=== PATIENT | female | born 1985 | race Caucasian/White ===

== ENCOUNTER 2020-02-05 15:49 | Emergency (ER) | payer BC, SELFPAY ==
--- NOTE | ~2020-02-05 | CT_ITS ---
EXAMINATION: CT abdomen pelvis w con DATE: 02/05/2020 17:57 INDICATION: Crohn's disease flareup. Abdomen pain. TECHNIQUE: Computed tomography (CT) of the abdomen and pelvis was performed with 100 cc Omnipaque 350 intravenous contrast. The dose-length product was 1261.88 mGy-cm. Automated exposure control and ite rative reconstruction technique were employed. COMPARISON: CT dated 05/19/2019 FINDINGS: Lung bases unremarkable. Heart size normal. No significant pleural or pericardial effusion. Fatty infiltration of the liver. The spleen, pancreas, adrenal glands and right kidney are unremarkab le. There is a punctate 2 mm nonobstructing left renal stone. Gallbladder is present. No bowel obstruction. Postsurgical changes consistent with partial right irving ctomy. There is an ileocolic anastomosis. No free air or free fluid. No evidence for abscess. There i s an involuting corpus luteal cyst of the right ovary which is slightly higher than expected. There a re accessory splenules. No acute osseous abnormality. IMPRESSION: 1. No acute abdominal abnormality. 2: Hepatic steatosis. 3: Nonobstructing left nephrolithiasis. Reviewed, dictated and finalized at location A.
[2020-02-05 16:02] VITALS: BP 141/98; PULSE 90; RESP 16; TEMP 37.1; O2SAT 98
[2020-02-05 16:29] LABS: Basophils Percent Auto 0.4 % (0.2-1.2); Eosinophils Absolute Auto 0.2 K/mm3 (0-0.3); Eosinophils Percent Auto 2.3 % (0-4.4); Hematocrit 42.9 % (37.0-47.0); Hemoglobin 14.6 g/dL (12.0-15.0); Immature Granulocyte Absolute 0.14 K/mm3 (0.00-0.031); Immature Granulocyte Percent A 1.6 % (0-0.5); Lymphocytes Absolute Auto 3.05 K/mm3 (0.9-3.2); Lymphocytes Percent Auto 33.8 % (18.3-44.2); Mean Corpuscular Hemoglobin 33.3 pg (26-34); Mean Corpuscular Volume 97.7 fl (80-100); Mean Platelet Volume 9.7 fl (7.4-10.4); Monocytes Absolute Auto 0.6 K/mm3 (0.1-0.6); Monocytes Percent Auto 6.6 % (2.6-8.5); Neutrophils Percent Auto 55.3 % (45.5-73.1); Platelet Count Result 235 k/mm3 (150-375); Red Blood Count 4.39 M/mm3 (4.2-5.4); Red Cell Distribution Width 12.1 % (11.5-14.5)
[2020-02-05 16:34] LABS: Add Urine Microscopic? YES; Appearance Urine Clear (Clear); Bacteria Urine Trace /hpf; Bilirubin Urine Negative (Negative); Blood Urine 1+ (Negative); Color Urine Yellow (Yellow); Glucose Urine UA Negative (Negative); Ketones Urine Negative (Negative); Leukocyte Esterase Ur Negative LEU/UL (Negative); Mucus Urine Rare /lpf; Nitrate Urine Negative (Negative); Protein Urine Negative (Negative); RBC Urine 0-2 /hpf (0-2); Squamous Epithelial Cell Urine Many /hpf (Few); Urobilinogen Urine Negative mg/dL (<2.0)
[2020-02-05 16:39] LABS: Alanine Aminotransferase 151 U/L (4-35); Albumin Level 4.2 g/dL (3.5-5.1); Alkaline Phosphatase 69 U/L (38-126); Aspartate Amino Transferase 93 U/L (14-36); Bilirubin,Total 0.2 mg/dL (0.2-1.3); Blood Urea Nitrogen 11 mg/dL (7-17); Carbon Dioxide 22 mmol/L (22-30); Chloride 105 mmol/L (98-107); Estimated CRCL calculation 104 ml/min; Estimated Glomerular Filt Rate > 60; Glucose 110 mg/dL (65-105); Lipase 187 U/L (23-300); Potassium 4.7 mmol/L (3.4-5.0); Sodium 135 mmol/L (137-145)
--- NOTE | 2020-02-05 17:09 | ED.ABDPAIN ---
HPI - Abdominal Pain General Chief Complaint: Abdominal Pain Stated Complaint: hx chron's/abd pain, low grade temp Time Seen by Provider: 02/05/20 16:54 Source: patient Mode of arrival: ambulatory Limitations: no limitations History of Present Illness HPI narrative: The pt is a 34 y/o female who presents to the ED c/o lower ABD pain onset one week ago. Pt states that it feels like her ABD is being twisted, and states that her pain feels similar to her Crohn's disease flare-ups. She notes that she last saw her item processing clerk, Dr. Colbert at [facility] on 01/20/20. She states that she takes Remicade, Mercaptopurine, and Allopurinol; she notes that she takes Remicade every six weeks. Pt reports nausea and 10-15 episodes of diarrhea per day, but denies bloody stools, vomiting, fever, and cough. MD elicited complaint: abdominal pain Pertinent past history: other (Crohn's disease) Location: other (Lower ABD) Severity: similar to previous episodes Quality: other ( Feels like ABD is being twisted ) Associated symptoms: nausea and diarrhea (10-15 per day) Related Data Home Medications Medication Instructions Recorded Confirmed allopurinol 02/05/20 atomoxetine PO 02/05/20 bupropion HCl PO 02/05/20 cariprazine [Vraylar] mg 02/05/20 divalproex PO 02/05/20 infliximab [Remicade] mg IV 02/05/20 trazodone 02/05/20 Allergies Allergy/AdvReac Type Severity Reaction Status Date / Time No Known Allergies Allergy Verified 02/05/20 17:22 Review of Systems Review of Systems: All systems reviewed & are unremarkable except as noted in HPI and below Constitutional: Constitutional: Denies fever(s) Respiratory: Respiratory: Denies cough Gastrointestinal: Gastrointestinal: Reports abdominal pain (Lower, Feels like ABD is being twisted ), Denies change in stool character (Blood in stools), Reports diarrhea (10-15 episodes per day), Reports nausea and Denies vomiting PMFSH Past Medical History Medical History (Updated 02/05/20 @ 19:58 by Moris Arriaga MD) Arm fracture, right Asthma Crohn's disease Depression Ovarian cyst depression Uterine fibroid Surgical History Surgical History (Updated 02/05/20 @ 17:32 by Johnny Jimenez) H/O ovarian cystectomy H/O: hysterectomy S/P small bowel resection Social History Social History (Updated 02/05/20 @ 17:32 by Johnny Jimenez) Smoking status: Smoker, status unknown Gender identity (if verbalized by the patient): Female Comments PCP: Dr. Agosto Cage Tender: Dr. Colbert Exam Narrative: Exam Narrative: General appearance: Well-developed, well-nourished Skin: Normal color Head: Normocephalic, nontraumatic Eyes: Clear conjunctiva ENT: Oropharynx normal, ears normal, nose normal Neck: Supple, nontender Chest and respiratory: Airway patent, no respiratory distress, no accessory muscle use Heart: Regular rate/rhythm Abdomen: Diffuse abdominal tenderness, positive guarding, no rebound, no organomegaly, quiet bowel sounds Vascular: Normal peripheral pulses, normal capillary refill. Musculoskeletal: Normal range of motion, nontender back Neurologic: Alert and oriented ?3, MAP MAKER is normal as tested, no gross motor deficit Course Course Emergency Course: Improving Vital Signs Vital signs: Vital Signs Temperature 37.1 C 02/05/20 16:02 Pulse Rate 90 02/05/20 16:02 Respiratory Rate 16 02/05/20 16:02 Blood Pressure 141/98 H 02/05/20 16:02 Pulse Oximetry 98 02/05/20 16:02 Temperature 37.1 C 02/05/20 16:02 Pulse Rate 80 02/05/20 18:33 Respiratory Rate 18 02/05/20 18:33 Blood Pressure 122/67 02/05/20 18:33 Pulse Oximetry 98 02/05/20 18:3
[2020-02-05 17:25] VITALS: BP 126/84; PULSE 81; RESP 18; O2SAT 96
[2020-02-05] MEDS: ONDANSETRON INJ 4 MG/2 ML VIAL IV PUSH (18:10)
[2020-02-05] MEDS: HYDROMORPHONE HCL 1 MG/ML INJ 0.5 MG IV PUSH (18:11)
[2020-02-05] MEDS: SODIUM CHLORIDE 0.9% IV 1,000 ML 999 ML IV CONT (18:12)
[2020-02-05 18:33] VITALS: BP 122/67; PULSE 80; RESP 18; O2SAT 98
== END 2020-02-05 20:26 | disposition home or self-care (01) ==
PROVIDERS: Emergency Provider Emergency Medicine; PCP Internal Medicine
DX: R10.84 Generalized abdominal pain (principal); K50.90 Crohn's disease, unspecified, without complications; J45.909 Unspecified asthma, uncomplicated; F32.9 Major depressive disorder, single episode, unspecified; N20.0 Calculus of kidney; K76.0 Fatty (change of) liver, not elsewhere classified
CPT/HCPCS: 36415; 74177; 80053; 81001; 83690; 85025; 96361; 96374; 96375; 99284; J1170; J2405; J7030; Q9967

== ENCOUNTER 2020-10-16 12:29 | Outpatient (NON) | payer BC, SELFPAY ==
[2020-10-18 16:41] LABS: SARS-CoV-2 RNA PCR Negative
== END 2020-10-16 12:30 ==
LOC: ANHCOVIDDT 12:31
PROVIDERS: PCP Internal Medicine; Visit Provider Internal Medicine
DX: R68.89 Other general symptoms and signs (principal); Z20.828 Contact with and (suspected) exposure to other viral communicable diseases
CPT/HCPCS: 87635; C9803; U0003

== ENCOUNTER 2021-11-05 18:55 | Emergency (ER) | payer BC, SELFPAY ==
--- NOTE | ~2021-11-05 | CT_ITS ---
EXAMINATION: CT abdomen pelvis wo con EXAM DATE: 11/05/2021 21:16 INDICATION: Flank pain. TECHNIQUE: Spiral CT of the abdomen and pelvis was performed without contrast. Axial, coronal and sag ittal images were reviewed. The dose-length product (DLP) for this examination was 532.79 mGy-cm. T he exposure was tailored according to patient size (auto mA exposure control), and iterative reconstr uction (ASIR) was used as additional dose reduction technique. Comparison is made to prior examinatio n from 05/19/2019. FINDINGS: There is a punctate 2 mm stone in the left ureterovesicular junction, indicated on axial im age 150. No hydronephrosis at present. The uterus is not identified and has likely been surgically re sected. The bladder is unremarkable. There is hepatic steatosis without suspicious focal lesion tiffanie ntified. Spleen, adrenal glands, pancreas are unremarkable. Gallbladder is unremarkable. No biliary obstruction. There is no retroperitoneal or pelvic lymphadenopathy. Cecal resection. The stomach and small bowel are unremarkable. There is expected amount of colonic stool. No free intraperitoneal gas. The heart is normal in size. There are no pericardial or ple ural effusions. The lung bases are unremarkable. There are no osteoblastic or osteolytic lesions id entified. IMPRESSION: 1. Left UVJ 2 mm stone without obstructive nephropathy at present; recommend KUB. 2. Hepatic steatosis. Reviewed, dictated and finalized at location A. 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 Left UVJ 2 mm stone without obstructive nephropathy at present; recommend KU B. 2. Hepatic steatosis.
[2021-11-05 18:57] VITALS: BP 161/103; PULSE 102; TEMP 36.7; O2SAT 100
[2021-11-05] MEDS: SODIUM CHLORIDE 0.9% IV 1,000 ML 999 ML IV CONT (20:09)
[2021-11-05 20:10] LABS: Basophils Percent Auto 0.8 % (0.2-1.2); Eosinophils Absolute Auto 0.3 K/mm3 (0-0.3); Hematocrit 40.6 % (37.0-47.0); Hemoglobin 14.2 g/dL (12.0-15.0); Immature Granulocyte Absolute 0.07 K/mm3 (0.00-0.031); Immature Granulocyte Percent A 1.4 % (0-0.5); Lymphocytes Absolute Auto 2.42 K/mm3 (0.9-3.2); Lymphocytes Percent Auto 48.1 % (18.3-44.2); Mean Corpuscular Hemoglobin 32.8 pg (26-34); Mean Corpuscular Volume 93.8 fl (80-100); Mean Platelet Volume 8.8 fl (7.4-10.4); Monocytes Absolute Auto 0.2 K/mm3 (0.1-0.6); Monocytes Percent Auto 3.8 % (2.6-8.5); Neutrophils Absolute Auto 2.1 K/mm3 (1.3-6.7); Neutrophils Percent Auto 40.9 % (45.5-73.1); Platelet Count Result 249 k/mm3 (150-375); Red Blood Count 4.33 M/mm3 (4.2-5.4); Red Cell Distribution Width 11.9 % (11.5-14.5)
[2021-11-05] MEDS: MORPHINE SULFATE (*CRX) 4 MG/ML INJ IV PUSH (20:10)
[2021-11-05] MEDS: ONDANSETRON INJ 4 MG/2 ML VIAL IV PUSH (20:10)
[2021-11-05 20:16] LABS: Add Urine Microscopic? YES; Appearance Urine Cloudy (Clear); Bacteria Urine Trace /hpf; Bilirubin Urine Negative (Negative); Blood Urine 1+ (Negative); Color Urine Yellow (Yellow); Glucose Urine UA Negative (Negative); Ketones Urine Negative (Negative); Leukocyte Esterase Ur Negative LEU/UL (Negative); Mucus Urine Rare /lpf; Nitrate Urine Negative (Negative); Protein Urine Negative (Negative); Specific Grav Ur 1.021 (1.001-1.035); Squamous Epithelial Cell Urine Many /hpf (Few); Urobilinogen Urine Negative mg/dL (<2.0)
[2021-11-05 20:24] LABS: Alanine Aminotransferase 160 U/L (4-35); Albumin Level 4.8 g/dL (3.5-5.1); Alkaline Phosphatase 68 U/L (38-126); Anion Gap 8 mmol/L (8-16); Aspartate Amino Transferase 115 U/L (14-36); Bilirubin,Total 0.4 mg/dL (0.2-1.3); Blood Urea Nitrogen 9 mg/dL (7-17); Calcium 9.8 mg/dL (8.4-10.2); Carbon Dioxide 27 mmol/L (22-30); Chloride 101 mmol/L (98-107); Estimated CRCL calculation 121 ml/min; Estimated Glomerular Filt Rate > 60; Glucose 108 mg/dL (65-110); Potassium 4.4 mmol/L (3.4-5.0); Sodium 136 mmol/L (137-145)
[2021-11-05] MEDS: KETOROLAC 30 MG/ML VIAL (*BKC) IV PUSH (22:20)
--- NOTE | 2021-11-05 22:57 | ED.GENADULT ---
HPI - General Adult General Chief complaint: Abdominal Pain Stated complaint: ABD pain Time Seen by Provider: 11/05/21 19:53 History of Present Illness HPI narrative: Patient is a 35-year-old female who presents ER with concerns for kidney stones. She began having abdominal pain and back pain last night that is increased throughout the day. Feels it radiating into her vagina. She does endorse urinary frequency but no dysuria. No fevers chills or sweats. She is without nausea or vomiting. The pain goes into her back and then goes down towards her legs. Denies any injury to her back. No numbness or tingling to the lower extremities. Related Data Home Medications Medication Instructions Recorded Confirmed allopurinol 02/05/20 atomoxetine PO 02/05/20 bupropion HCl PO 02/05/20 cariprazine [Vraylar] mg 02/05/20 divalproex PO 02/05/20 infliximab [Remicade] mg IV 02/05/20 trazodone 02/05/20 Allergies Allergy/AdvReac Type Severity Reaction Status Date / Time No Known Allergies Allergy Verified 11/05/21 19:52 Review of Systems Review of Systems: All systems reviewed & are unremarkable except as noted in HPI and below Constitutional: Constitutional: Denies chills, Denies fever(s) and Denies weakness ENT: Denies nasal congestion and Denies sore throat Gastrointestinal: Gastrointestinal: Reports abdominal pain, Denies nausea and Denies vomiting Genitourinary: Genitourinary: Denies abnormal vaginal bleeding, Reports nocturia, Denies dysuria, Reports flank pain and Denies vaginal discharge [facility] Past Medical History Medical History (Updated 11/05/21 @ 22:58 by Stephen Batres MD) Arm fracture, right Asthma Crohn's disease Depression Ovarian cyst depression Uterine fibroid Surgical History Surgical History (Updated 02/05/20 @ 17:32 by Johnny Jimenez) H/O ovarian cystectomy H/O: hysterectomy S/P small bowel resection Social History Social History (Updated 02/05/20 @ 17:32 by Johnny Jimenez) Smoking status: Smoker, status unknown Gender identity (if verbalized by the patient): Female Exam Narrative: GENERAL: Well-appearing, well-nourished, and in no acute distress. HEAD: Normocephalic, atraumatic. CHEST: Clear to auscultation. No respiratory distress. HEART: Regular rate and rhythm. Normal peripheral pulses. ABDOMEN: Soft, nontender, nondistended. No CVA tenderness. EXTREMITIES: Normal range of motion. No edema. SKIN: Warm, dry, no rash. NEURO: Alert and oriented x3. PSYCH: Normal mood and affect. Course Course Emergency Course: Patient informed results. Pain medication given. Discharge home. Vital Signs Vital signs: Vital Signs Temperature 98.0 F 11/05/21 18:57 Pulse Rate 102 H 11/05/21 18:57 Blood Pressure 161/103 H 11/05/21 18:57 Pulse Oximetry 100 11/05/21 18:57 Temperature 98.0 F 11/05/21 18:57 Pulse Rate 102 H 11/05/21 18:57 Blood Pressure 161/103 H 11/05/21 18:57 Pulse Oximetry 100 11/05/21 18:57 Medical Decision Making Vital Signs Vital Signs: Vital Signs Temperature 98.0 F 11/05/21 18:57 Pulse Rate 102 H 11/05/21 18:57 Blood Pressure 161/103 H 11/05/21 18:57 Pulse Oximetry 100 11/05/21 18:57 Temperature 98.0 F 11/05/21 18:57 Pulse Rate 102 H 11/05/21 18:57 Blood Pressure 161/103 H 11/05/21 18:57 Pulse Oximetry 100 11/05/21 18:57 Lab Data Result diagrams: 11/05/21 20:02 11/05/21 20:02 Labs: Lab Results 11/05/21 11/05/21 11/05/21 Range/Units 20:02 20:02 20:02 WBC 5.0 (4.5-10.0) K/mm3 RBC 4.33 (4.2-5.4) M/mm3 Hgb 14.2 (12.0-15.0) g/dL Hct 40.6 (37.0-47.0) % MCV 93.8 (80-100) fl MCH 32.8 (26-34) pg MCHC 35.0 (32-36) g/dl RDW 11.9 (11.5-14.5) % Plt Count 249 (150-375) k/mm3 MPV 8.8 (7.4-10.4) fl Immature Gran % (Auto) 1.4 H (0-0.5) % Neut % (Auto) 40.9 L (45.5-73.1) % Lymph % (Aut
[2021-11-05 23:09] VITALS: BP 146/89; PULSE 77; RESP 16; O2SAT 99
== END 2021-11-05 23:11 | disposition home or self-care (01) ==
PROVIDERS: Emergency Provider Emergency Medicine; PCP Internal Medicine
DX: N20.1 Calculus of ureter (principal); J45.909 Unspecified asthma, uncomplicated; K50.90 Crohn's disease, unspecified, without complications; F32.9 Major depressive disorder, single episode, unspecified
CPT/HCPCS: 36415; 74176; 80053; 81001; 81025; 85025; 96361; 96374; 96375; 99284; J1885; J2270; J2405; J7030

== ENCOUNTER 2023-01-24 13:20 | Emergency (ER) | payer BC, SELFPAY ==
[2023-01-24 13:38] VITALS: BP 136/91; PULSE 101; RESP 16; TEMP 36.5; O2SAT 99
--- NOTE | 2023-01-24 14:02 | ED.URI ---
HPI - URI/Sore Throat General Chief Complaint: Upper Respiratory Infection Stated Complaint: SORE THROAT/COUGH/TIGHT CHEST Time Seen by Provider: 01/24/23 13:54 Source: patient and RN notes reviewed Mode of arrival: ambulatory Limitations: no limitations History of Present Illness HPI Narrative: 37-year-old female presents concern for one-week history of sore throat, cough with chest tightness. She reports she is immunocompromised. She denies known sick contacts MD elicited complaint: cough and sore throat Related Data Home Medications Medication Instructions Recorded Confirmed bupropion HCl 100 mg tablet,12 hr 100 mg PO DAILY 02/05/20 01/24/23 sustained-release infliximab 100 mg intravenous 100 mg IV WEEKLY 02/05/20 01/24/23 solution (Remicade) trazodone 50 mg tablet 50 mg PO DAILY 02/05/20 01/24/23 amlodipine 5 mg tablet 5 mg PO DAILY 01/24/23 01/24/23 atomoxetine 40 mg capsule 40 mg PO DAILY 01/24/23 01/24/23 fluoxetine 40 mg capsule 40 mg PO DAILY 01/24/23 01/24/23 hydroxyzine HCl 25 mg tablet 25 mg PO DAILY 01/24/23 01/24/23 Allergies Allergy/AdvReac Type Severity Reaction Status Date / Time No Known Allergies Allergy Verified 01/24/23 13:50 Review of Systems Review of Systems: CONSTITUTIONAL: Reports malaise. Denies chills, sweats, or fever. EYES: Denies visual changes, redness, or discharge. ENT: Denies rhinorrhea, congestion, sinus pain, otalgia. Reports sore throat. CARDIOVASCULAR: Denies chest pain, palpitations, or edema. RESPIRATORY: Reports cough. Denies dyspnea. GASTROINTESTINAL: Denies abdominal pain, nausea, vomiting, diarrhea SKIN: Denies rash or itching. MUSCULOSKELETAL: Denies myalgia. NEUROLOGIC: Denies headache. All systems reviewed & are unremarkable except as noted in HPI and below PMFSH Past Medical History Medical History (Updated 01/24/23 @ 14:03 by Nely Perry NP) Arm fracture, right Asthma Crohn's disease Depression Ovarian cyst depression Uterine fibroid Surgical History Surgical History (Updated 02/05/20 @ 17:32 by Johnny Jimenez) H/O ovarian cystectomy H/O: hysterectomy S/P small bowel resection Social History Social History (Updated 02/05/20 @ 17:32 by Johnny Jimenez) Smoking status: Smoker, status unknown Gender identity (if verbalized by the patient): Female Comments At time of signature, agree with nursing past medical, surgical, social and family history. There is no relevant family history pertinent to the presenting complaint Exam Narrative: GENERAL: Nontoxic-appearing and in no acute distress. HEAD: Normocephalic EYES: PERRLA, conjunctivae clear ENT: Nares clear. Mucous membranes moist. TM pearly pascal with dull light reflex bilaterally; no tragal tenderness. Oropharynx erythematous without lesions. Tonsils not enlarged and without exudate, no drooling, no hoarseness, no trismus, uvula midline. NECK: Supple. No lymphadenopathy CHEST: Clear to auscultation, breath sounds equal. No wheezing, rhonchi, rales, or stridor. No respiratory distress, speaks in full sentences. HEART: Regular rate and rhythm. No murmur heard. SKIN: Warm, dry, no rash. NEURO: Alert and oriented x3. PSYCH: Normal mood and affect Course Course Emergency Course: Patient is aware of diagnosis, understands and agrees to treatment plan. Anticipatory guidance given. Patient agrees to follow-up as directed and is aware of reasons to seek care at the emergency department. Portions of this record may have been created with voice recognition software Level of Care: Express Care Visit Vital Signs Vital signs: Vital Signs Temperature 97.7 F 01/24/23 13:38 Pulse Rate 101 H 01/24/23 13:38 Respiratory Rate 16 01/24/23 13:38 Blood Pressure 136/91 H 01/24/23 13:38 Pulse Oximetry 99 01/24/23 13:38 Temperature 97.7 F 01/24/23 13:38 Pulse Rate 101 H 01/24/23 13:38 Respiratory Rate 16 01/24/23 13:38 Blood Pressure 136/91 H
== END 2023-01-24 14:09 | disposition home or self-care (01) ==
PROVIDERS: Emergency Provider Nurse Practitioner; PCP Internal Medicine
DX: J02.0 Streptococcal pharyngitis (principal); J45.909 Unspecified asthma, uncomplicated
CPT/HCPCS: 87804; 87880; 99213; G0463

== ENCOUNTER 2023-09-09 13:13 | Emergency (ER) | payer BC, SELFPAY ==
[2023-09-09] VITALS (14 sets, daily range): BP systolic 125–132; BP diastolic 76–91; PULSE 72–91; RESP 12–20; TEMP 36.4–36.7; O2SAT 98–100
--- NOTE | ~2023-09-09 | XR_ITS ---
EXAMINATION: XR chest 1V portable DATE: 09/09/2023 14:00 INDICATION: Pain and shortness of breath TECHNIQUE: frontal view of the chest was obtained. COMPARISON: Chest radiograph dated 05/21/2017 FINDINGS: The lungs remain clear with no focal airspace opacities, pulmonary edema, pleural effusion or pneumot horax. The cardiomediastinal silhouette is normal. Visualized bones and soft tissues are unremarkable . IMPRESSION: 1. No acute cardiopulmonary disease. Reviewed, dictated and finalized at location A.
--- NOTE | ~2023-09-09 | CT_ITS ---
EXAMINATION: CT abdomen pelvis w con DATE: 09/09/2023 15:47 INDICATION: Abdominal pain TECHNIQUE: Computed tomography (CT) of the abdomen and pelvis was performed with 100 mL Omnipaque-350 intravenous contrast. Automated exposure control and iterative reconstruction technique were employe d. The dose-length product was 836.65 mGy-cm. COMPARISON: 11/05/21 FINDINGS: Lung bases are clear. Heart size is normal. No pericardial or pleural effusion. Small sliding-type hi atal hernia. Mild diffuse hepatic steatosis. Gallbladder, spleen, pancreas, bilateral adrenal glands and kidneys are normal. Prior cecal resection with ileocolic anastomosis in the right lower quadrant. No bowel obstruction. Bladder is normal. The uterus is not identified and has likely been surgically resected. Left ovary is unremarkable. 1.1 cm peripherally enhancing likely corpus luteum cyst in the right ovary. No free intraperitoneal gas or fluid. No pathologically enlarged abdominal or pelvic ly mphadenopathy. Mild thoracic and lumbar spondylosis with partially lumbarized S1 segment. IMPRESSION: 1. No acute intra-abdominal/pelvic process. 2. 1.1 cm likely corpus luteum cyst at the right ovary. 3. Diffuse hepatic steatosis. 4. Small sliding-type hiatal hernia. Reviewed, dictated and finalized at location A.
--- NOTE | 2023-09-09 13:18 | ECG_ITS ---
Measurements Intervals [place] Rate: 83 P: -2 NV: 151 QRS: 68 QRSD: 86 T: 41 QT: 336 QTc: 395 Interpretive Statements SINUS RHYTHM NONSPECIFIC ST ABNORMALITY BORDERLINE ECG NO PREVIOUS ECG AVAILABLE FOR COMPARISON Electronically Signed On 09-10-2023 16:43:57 CDT by Mukund Tinoco M.D.
[2023-09-09 13:33] LABS: Basophils Percent Auto 0.2 % (0.2-1.2); Eosinophils Absolute Auto 0.2 K/mm3 (0-0.3); Eosinophils Percent Auto 2.9 % (0-4.4); Hematocrit 39.6 % (37.0-47.0); Hemoglobin 13.8 g/dL (12.0-15.0); Immature Granulocyte Absolute 0.06 K/mm3 (0.00-0.031); Immature Granulocyte Percent A 0.9 % (0-0.5); Lymphocytes Absolute Auto 2.84 K/mm3 (0.9-3.2); Lymphocytes Percent Auto 42.6 % (18.3-44.2); Mean Corpuscular HGB Conc 34.8 g/dl (32-36); Mean Corpuscular Hemoglobin 31.7 pg (26-34); Mean Platelet Volume 9.3 fl (7.4-10.4); Monocytes Absolute Auto 0.5 K/mm3 (0.1-0.6); Monocytes Percent Auto 7.4 % (2.6-8.5); Neutrophils Absolute Auto 3.1 K/mm3 (1.3-6.7); Platelet Count Result 251 k/mm3 (150-375); Red Blood Count 4.35 M/mm3 (4.2-5.4); White Blood Count 6.7 K/mm3 (4.5-10.0)
[2023-09-09 13:42] LABS: Alanine Aminotransferase 32 U/L (6-35); Albumin Level 4.2 g/dL (3.5-5.1); Alkaline Phosphatase 54 U/L (38-126); Anion Gap 9 mmol/L (8-16); Aspartate Amino Transferase 30 U/L (14-36); Bilirubin,Total 0.5 mg/dL (0.2-1.3); Blood Urea Nitrogen 8 mg/dL (7-17); Calcium 8.7 mg/dL (8.4-10.2); Carbon Dioxide 20 mmol/L (22-30); Chloride 108 mmol/L (98-107); Estimated CRCL calculation 96 ml/min; Estimated Glomerular Filt Rate > 60; Glucose 93 mg/dL (65-110); Lipase 168 U/L (23-300); Potassium 3.4 mmol/L (3.4-5.0); Sodium 137 mmol/L (137-145)
[2023-09-09 13:53] LABS: Troponin I < 0.012 ng/mL (0.000-0.034)
--- NOTE | 2023-09-09 15:06 | ED.ABDPAIN ---
HPI - Abdominal Pain General Chief Complaint: Abdominal Pain Stated Complaint: abd pain/vomiting Time Seen by Provider: 09/09/23 14:24 Source: patient and RN notes reviewed Mode of arrival: ambulatory Limitations: no limitations History of Present Illness HPI narrative: This is a 37 year old female with history of chrohn's disease who presents for evaluation of abdominal pain. She states starting 1 week ago she develop foul smelling diarrhea, nausea, vomiting and diffuse abdominal cramping. She reports having up to 20 bowel movements per day until yesterday. She has been unable to pass gas or have bowel movement since yesterday. She having fever or chills. 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 She states prior to this episode she was in remission for 4 years. She also reports developed constant left chest pain pressure since Sunday with no worrisome symptoms. She denies sick contacts, recent antibiotics use. Related Data Home Medications Medication Instructions Recorded Confirmed bupropion HCl 100 mg tablet,12 hr 100 mg PO DAILY 02/05/20 01/24/23 sustained-release infliximab 100 mg intravenous 100 mg IV WEEKLY 02/05/20 01/24/23 solution (Remicade) trazodone 50 mg tablet 50 mg PO DAILY 02/05/20 01/24/23 amlodipine 5 mg tablet 5 mg PO DAILY 01/24/23 01/24/23 atomoxetine 40 mg capsule 40 mg PO DAILY 01/24/23 01/24/23 fluoxetine 40 mg capsule 40 mg PO DAILY 01/24/23 01/24/23 hydroxyzine HCl 25 mg tablet 25 mg PO DAILY 01/24/23 01/24/23 Allergies Allergy/AdvReac Type Severity Reaction Status Date / Time No Known Allergies Allergy Verified 01/24/23 13:50 Review of Systems Constitutional: Constitutional: Denies weakness Cardiovascular: Cardiovascular: Reports chest pain, Denies syncope, Denies rapid heart rate, Denies irregular heart rhythm, Denies leg edema and Denies dyspnea Respiratory: Respiratory: Denies chest congestion, Denies hemoptysis, Denies excessive phlegm production and Denies dyspnea Gastrointestinal: Gastrointestinal: Reports abdominal pain, Reports bloating, Denies hematochezia, Reports diarrhea, Reports nausea and Reports vomiting Genitourinary: Genitourinary: Denies hematuria and Denies dysuria Musculoskeletal: Musculoskeletal: Denies joint swelling, Denies loss of height and Denies muscle weakness Neurologic: Denies syncope, Denies focal weakness and Denies weakness PMFSH Past Medical History Medical History Arm fracture, right Asthma Crohn's disease Depression Ovarian cyst depression Uterine fibroid Surgical History Surgical History H/O ovarian cystectomy H/O: hysterectomy S/P small bowel resection Social History Social History Smoking status: Smoker, status unknown Gender identity (if verbalized by the patient): Female Exam Const: General: no acute distress and alert Nutritional Appearance: well nourished and obese Orientation/consciousness: patient oriented x3 HENMT: Head: normal to inspection Eyes: EOM: EOMs intact bilaterally Chest: Chest palpation & inspection: normal inspection of the chest Resp: Effort & Inspection: normal respiratory effort Auscultation: clear to auscultation bilaterally Cardio: Rate: regular rate Rhythm: regular rhythm Heart sounds: no murmurs GI: GI Palp: Yes Soft to palpation, Yes Tenderness to palpation present (GI) (diffuse), No Guarding due to palpation present (GI), No Rigid due to palpation and No Hernia present Auscultation: normal bowel sounds Back/Spine/Pelvis: Back: no CVA tenderness Skin: General skin exam: normal color Rashes: no rashes Wounds: no wounds Neuro: General: patient oriented x3, moves all extremities and CN's II-XI intact bilaterally Extrem: General: normal to inspection Psych: Mental Status: mental status grossly normal
[2023-09-09] MEDS: HYDROmorphone HCL INJ (*CRX) 1 MG/ML SYR 0.5 MG IV PUSH (15:10)
[2023-09-09] MEDS: SODIUM CHLORIDE 0.9% IV 1,000 ML 999 ML IV CONT (15:10)
[2023-09-09] MEDS: ONDANSETRON INJ 4 MG/2 ML VIAL IV PUSH (15:11)
[2023-09-09 15:44] LABS: Appearance Urine Cloudy (Clear); Bacteria Urine 2+ /hpf; Bilirubin Urine Negative (Negative); Blood Urine Negative (Negative); Color Urine Yellow (Yellow); Glucose Urine UA Negative (Negative); Ketones Urine Negative (Negative); Leukocyte Esterase Ur Negative LEU/UL (Negative); Need Manual Microscopic Reviewed; Nitrate Urine Negative (Negative); Non Pathogenic Casts 0-2; Protein Urine Negative (Negative); Squamous Epithelial Cell Urine Moderate /hpf (Few); Urobilinogen Urine 0.2 mg/dL (<2.0); pH Urine 6.5 (5.0-9.0)
[2023-09-09 15:45] LABS: Add Urine Microscopic? YES
[2023-09-09] MEDS: KETOROLAC 15 MG/ML VIAL (*BKC) IV PUSH (16:46)
== END 2023-09-09 16:50 | disposition home or self-care (01) ==
PROVIDERS: Student in an Organized Health Care Education/Training Program; Emergency Provider General Practice; PCP Internal Medicine
DX: R10.84 Generalized abdominal pain (principal); N83.11 Corpus luteum cyst of right ovary; J45.909 Unspecified asthma, uncomplicated; F32.A Depression, unspecified; Z90.710 Acquired absence of both cervix and uterus; K76.0 Fatty (change of) liver, not elsewhere classified; K44.9 Diaphragmatic hernia without obstruction or gangrene
CPT/HCPCS: 36415; 71045; 74177; 80053; 81001; 83690; 84484; 85025; 87086; 93005; 96361; 96374; 96375; 99284; J1170; J1885; J2405; J7030; Q9967

== ENCOUNTER 2023-12-26 09:37 | Outpatient (CLI) | payer BC, SELFPAY ==
--- NOTE | ~2023-12-26 | MMUS_ITS ---
EXAMINATION: MM diagnostic karina BI w ryan, US breast RT complete HISTORY: Palpable right breast lump TECHNIQUE: Additional 3-D tomosynthesis images of the breasts were performed and synthetic 2-D images were generated. CAD analysis was submitted and interpreted. High resolution complete right breast ul trasound was performed. COMPARISON: None BREAST PARENCHYMAL COMPOSITION: Breast composed of scattered areas of fibroglandular density FINDINGS: MAMMOGRAPHIC FINDINGS: There are no suspicious masses, calcifications or architectural distortion ULTRASOUND: Complete bilateral US of all 4 quadrants of the right breast and retroareolar region was reviewed. Th ere are small simple cysts of the right breast, largest measuring 5 mm. No suspicious masses to sugge st malignancy. IMPRESSION: 1. No evidence for malignancy in either breast. 2. Routine yearly screening mammogram and regular clinical breast examination are recommended. BI-RADS Category 2: Benign finding(s). Reviewed, dictated and finalized at location A. ER EXPERT IMPRESSION: 1. No evidence for malignancy in either breast. 2. Routine yearly screening mammogram and regular clinical breast examination a re recommended. BI-RADS Category 2: Benign finding(s).
== END 2023-12-26 09:38 ==
LOC: MICIMG 09:38
PROVIDERS: PCP Internal Medicine; Visit Provider Obstetrics & Gynecology
DX: N63.0 Unspecified lump in unspecified breast (principal)
CPT/HCPCS: 76641; 77062; 77066; G0279

== ENCOUNTER 2024-01-27 08:45 | Emergency (ER) | payer BC, SELFPAY ==
--- NOTE | ~2024-01-27 | CT_ITS ---
EXAMINATION: CT brain wo con DATE: 01/27/2024 11:06 INDICATION: Seizure. TECHNIQUE: Computed tomography (CT) of the head was performed without intravenous contrast. The mA wa s adjusted according to patient size. Iterative reconstruction technique was employed. The dose-lengt h product was 605.33 mGy-cm. COMPARISON: Brain MRI 06/25/2004 FINDINGS: There is a 7 mm hyperdense mass in the anterior third ventricle, consistent with a colloid cyst. There is no intracranial hemorrhage or acute ischemic infarct. The ventricles are normal in siz e. The paranasal sinuses are clear. The mastoid air cells are normal. IMPRESSION: 1. 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 Reviewed, dictated and finalized at location A. [facility]
--- NOTE | ~2024-01-27 | CT_ITS ---
EXAMINATION: CT abdomen pelvis w con DATE: 01/27/2024 11:06 INDICATION: Abdominal pain. TECHNIQUE: Computed tomography (CT) of the abdomen and pelvis was performed with 100 mL Omnipaque 350 intravenous contrast. Automated exposure control and iterative reconstruction technique were employe d. The dose-length product was 730.13 mGy-cm. COMPARISON: CT abdomen and pelvis 09/09/2023 FINDINGS: The visualized portions of the lung bases are clear without pneumonia or pleural effusion. The heart size is normal. No pericardial effusion. There is a small sliding hiatal hernia. The liver, gallbladder, spleen, pancreas, adrenal glands, and kidneys are normal. There are changes of right he micolectomy. There are no pathologically enlarged lymph nodes. There is no free intraperitoneal fluid . Aortic atherosclerosis is noted. There is mild thoracic and lumbar spondylosis. IMPRESSION: 1. Small sliding hiatal hernia. Reviewed, dictated and finalized at location A. MANAGER
--- NOTE | ~2024-01-27 | XR_ITS ---
EXAMINATION: XR chest 2V DATE: 01/27/2024 09:52 INDICATION: Shortness of breath. TECHNIQUE: Frontal and lateral views of the chest were obtained. COMPARISON: Chest single view 09/09/2023 FINDINGS: There is no pneumonia, pleural effusion, or pneumothorax. The heart size is normal. IMPRESSION: 1. No acute cardiopulmonary disease. Reviewed, dictated and finalized at location A. [employer]
[2024-01-27 08:57] VITALS: PULSE 78; RESP 16; TEMP 36.6; O2SAT 100
[2024-01-27 09:01] VITALS: BP 114/74; PULSE 74; RESP 16; O2SAT 100
--- NOTE | 2024-01-27 09:14 | ECG_ITS ---
Measurements Intervals [place] Rate: 76 P: -3 MA: 147 QRS: 66 QRSD: 77 T: 50 QT: 345 QTc: 388 Interpretive Statements SINUS RHYTHM MINIMAL Q WAVES- INFERIOR LEADS BORDERLINE ECG COMPARED TO ECG 09/09/2023 13:23:24 NO SIGNIFICANT CHANGES Electronically Signed On 01-27-2024 15:23:19 FILTER PRESS SUPERVISOR by Dre Zavala D.O.
--- NOTE | 2024-01-27 09:14 | ED.GENADULT ---
HPI - General Adult General Chief complaint: Unspecified <Chad Knapp APRN - Last Filed: 01/27/24 12:43> Stated complaint: MULTIPLE COMPLAINTS <Chad Knapp APRN - Last Filed: 01/27/24 12:43> Time Seen by Provider: 01/27/24 08:53 <Chad Knapp APRN - Last Filed: 01/27/24 12:43> Source: patient <Chad Knapp APRN - Last Filed: 01/27/24 12:43> Mode of arrival: ambulatory <Chad Knapp APRN - Last Filed: 01/27/24 12:43> Limitations: no limitations <Chad Knapp APRN - Last Filed: 01/27/24 12:43> History of Present Illness HPI narrative: Kira's a 38-year-old female patient presenting to the ER today with complaints of upper and lower abdominal pain and shortness of breath. She reports that she has history of Crohn's and has not been on her Remicade since October due to insurance no longer covering the Remicade. States she is having lower abdominal pain and some new upper abdominal pain. Also reports she has a cyst in her abdomen. Stools are mucus see but not bloody. Also reporting some shortness of breath. History of depression and has had ECT for this but has not had treatment since October so she feels as though she is having periods of loss of time-she is concerned that she may have bitten her tongue during this loss of time-thinks she may have had a seizure <Chad Knapp APRN - Last Filed: 01/27/24 12:43> Related Data Home medications: Home Medications Medication Instructions Recorded Confirmed bupropion HCl 100 mg tablet,12 hr 100 mg PO DAILY 02/05/20 01/24/23 sustained-release infliximab 100 mg intravenous 100 mg IV WEEKLY 02/05/20 01/24/23 solution (Remicade) trazodone 50 mg tablet 50 mg PO DAILY 02/05/20 01/24/23 amlodipine 5 mg tablet 5 mg PO DAILY 01/24/23 01/24/23 atomoxetine 40 mg capsule 40 mg PO DAILY 01/24/23 01/24/23 fluoxetine 40 mg capsule 40 mg PO DAILY 01/24/23 01/24/23 hydroxyzine HCl 25 mg tablet 25 mg PO DAILY 01/24/23 01/24/23 <Chad Knapp APRN - Last Filed: 01/27/24 12:43> Allergies/adverse reactions: Allergies Allergy/AdvReac Type Severity Reaction Status Date / Time No Known Allergies Allergy Verified 01/27/24 08:47 <Chad Knapp APRN - Last Filed: 01/27/24 12:43> Review of Systems Review of Systems: Pertinent positives per HPI. Patient denies any fever, chills, rash, headache, visual changes, dizziness, cough, runny nose, sore throat, shortness of breath, chest pain, palpitations, nausea, vomiting, diarrhea, constipation, abdominal pain, or any urinary issues. <Chad Knapp APRN - Last Filed: 01/27/24 12:43> PMFSH Past Medical History Medical History: Medical History Arm fracture, right Asthma Crohn's disease Depression Ovarian cyst depression Uterine fibroid <Chad Knapp APRN - Last Filed: 01/27/24 12:43> Surgical History Surgical History: Surgical History H/O ovarian cystectomy H/O: hysterectomy S/P small bowel resection <Chad nKapp APRN - Last Filed: 01/27/24 12:43> Social History Social History: Social History Smoking status: Smoker, status unknown Gender identity (if verbalized by the patient): Female <Chad Knapp APRN - Last Filed: 01/27/24 12:43> Exam Narrative: General: Well-developed, well nourished, in no apparent distress Head: Normocephalic, atraumatic Eyes: Pupils equally round and reactive to light bilaterally, EOM intact, sclera and conjunctive clear, no discharge, lids normal Ears: TMs intact and clear, ear canals clear, no drainage, grossly hearing normal. Nose: Nares patent, no discharge, no inflammation, no sinus tenderness. Mouth: Oropharynx without lesions or masses, good dentiti
[2024-01-27 09:48] LABS: Basophils Percent Auto 0.3 % (0.2-1.2); Eosinophils Absolute Auto 0.2 K/mm3 (0-0.3); Eosinophils Percent Auto 2.3 % (0-4.4); Hematocrit 42.8 % (37.0-47.0); Hemoglobin 14.2 g/dL (12.0-15.0); Immature Granulocyte Absolute 0.07 K/mm3 (0.00-0.031); Immature Granulocyte Percent A 1.1 % (0-0.5); Lymphocytes Absolute Auto 2.13 K/mm3 (0.9-3.2); Mean Corpuscular HGB Conc 33.2 g/dl (32-36); Mean Corpuscular Hemoglobin 32.2 pg (26-34); Mean Corpuscular Volume 97.1 fl (80-100); Mean Platelet Volume 9.7 fl (7.4-10.4); Monocytes Absolute Auto 0.4 K/mm3 (0.1-0.6); Monocytes Percent Auto 5.7 % (2.6-8.5); Neutrophils Absolute Auto 3.7 K/mm3 (1.3-6.7); Neutrophils Percent Auto 57.6 % (45.5-73.1); Platelet Count Result 288 k/mm3 (150-375); Red Blood Count 4.41 M/mm3 (4.2-5.4); Red Cell Distribution Width 12.5 % (11.5-14.5); White Blood Count 6.5 K/mm3 (4.5-10.0)
[2024-01-27 09:58] LABS: INR 1.1; Prothrombin Time 14.3 Seconds (11.1-14.7)
[2024-01-27 09:59] LABS: Partial Thromboplastin Time 28.8 SECONDS (22.3-36.8)
[2024-01-27 10:01] LABS: Alanine Aminotransferase 37 U/L (6-35); Albumin Level 4.2 g/dL (3.5-5.1); Alkaline Phosphatase 62 U/L (38-126); Anion Gap 10 mmol/L (8-16); Aspartate Amino Transferase 37 U/L (14-36); Bilirubin,Total 0.6 mg/dL (0.2-1.3); Blood Urea Nitrogen 10 mg/dL (7-17); Calcium 9.5 mg/dL (8.4-10.2); Carbon Dioxide 19 mmol/L (22-30); Chloride 106 mmol/L (98-107); Estimated Glomerular Filt Rate > 60; Glucose 133 mg/dL (65-110); Lipase 314 U/L (23-300); Sodium 135 mmol/L (137-145)
[2024-01-27 10:07] LABS: D Dimer 0.41 ug/mL (<0.48)
[2024-01-27 10:10] LABS: Add Urine Microscopic? YES; Appearance Urine Turbid (Clear); Bacteria Urine 4+ /hpf; Bilirubin Urine Negative (Negative); Blood Urine Negative (Negative); Color Urine Dark Yellow (Yellow); Glucose Urine UA Negative (Negative); Ketones Urine Negative (Negative); Leukocyte Esterase Ur Negative LEU/UL (Negative); Need Manual Microscopic Reviewed; Nitrate Urine Negative (Negative); Protein Urine Negative (Negative); Specific Grav Ur 1.023 (1.001-1.035); Squamous Epithelial Cell Urine Many /hpf (Few); Urobilinogen Urine 0.2 mg/dL (<2.0); WBC Urine 21-50 /hpf; pH Urine 5.5 (5.0-9.0)
[2024-01-27 10:12] LABS: NT Pro B Type Natriuretic Pept < 20 pg/mL (19.9-100); Troponin I < 0.012 ng/mL (0.000-0.034)
[2024-01-27 11:30] VITALS: BP 116/72; PULSE 69; RESP 19; TEMP 36.4; O2SAT 100
== END 2024-01-27 11:40 | disposition home or self-care (01) ==
PROVIDERS: Emergency Provider Nurse Practitioner Family; PCP Internal Medicine
DX: N39.0 Urinary tract infection, site not specified (principal); Q04.6 Congenital cerebral cysts; K44.9 Diaphragmatic hernia without obstruction or gangrene; K50.90 Crohn's disease, unspecified, without complications; J45.909 Unspecified asthma, uncomplicated; F32.A Depression, unspecified; Z90.710 Acquired absence of both cervix and uterus; Z90.49 Acquired absence of other specified parts of digestive tract; R94.31 Abnormal electrocardiogram [ECG] [EKG]
CPT/HCPCS: 36415; 70450; 71046; 74177; 80053; 81001; 83690; 83880; 84484; 85025; 85380; 85610; 85730; 87086; 93005; 99284; Q9967

== ENCOUNTER 2024-02-12 13:07 | Outpatient (CLI) | payer BC, SELFPAY ==
--- NOTE | ~2024-02-12 | MR_ITS ---
MRI of the brain Clinical History: Colloid cyst Technique: Axial and sagittal T1-weighted images were acquired. These were followed by axial T2-weigh yareli, diffusion weighted, gradient, and FLAIR images. Following intravenous administration of 15 cc Mu ltiHance gadolinium, T1-weighted fat-sat imaging was performed in the axial, coronal, and sagittal pl anes. COMPARISON: 06/25/2004 Findings: There is an 8 mm rounded mass at the roof of the third ventricle, mildly FLAIR hyperintense predominantly, without postcontrast enhancement, consistent with colloid cyst. No abnormal signal se en in the brain parenchyma otherwise. No intracranial hemorrhage or acute infarct. Ventricles and subarachnoid spaces are unremarkable, nondilated. Orbits are unremarkable. Paranasal s inuses and mastoid air cells are clear. Major flow voids are intact. Sagittal midline structures are intact. No abnormal postcontrast enhancement identified. IMPRESSION: 8 mm colloid cyst at the roof of the third ventricle. No ventricular dilatation. Reviewed, dictated and finalized at [facility]. IMPRESSION: 8 mm colloid cyst at the roof of the third ventricle. No ventricular dilatation .
== END 2024-02-12 13:08 ==
LOC: GOSHIMG 13:09
PROVIDERS: PCP Internal Medicine; Visit Provider Internal Medicine
DX: G93.0 Cerebral cysts (principal)
CPT/HCPCS: 70553; A9577

== ENCOUNTER 2024-11-06 05:36 | Emergency (ER) | payer BC, SELFPAY ==
--- NOTE | ~2024-11-06 | CT_ITS ---
Non-contrast Head CT History: Syncope COMPARISON: 01/27/2024 Technique: Axial non-contrast imaging of the brain was performed. Dose reduction technique was used on this scan by utilizing automated exposure control and iterative reconstruction technique. The dose -length product (DLP) was 681.00 mGy-cm. Findings: There is no evidence of intracranial hemorrhage, mass lesion, or acute infarct. Brain par enchyma appears normal. The ventricles and subarachnoid spaces are normal in size. The calvarium ap pears normal. The visualized paranasal sinuses and mastoid air cells are clear. Impression: No significant abnormality seen. Reviewed, dictated and finalized at location . ECHNICAL INTERN Impression: No significant abnormality seen.
--- NOTE | ~2024-11-06 | XR_ITS ---
Portable chest x-ray Comparison: 01/27/2024 Clinical History: Syncope Findings: Lungs are clear, without focal consolidation or pleural effusion. Cardiomediastinal silho uette is stable. Bones and soft tissues are unremarkable. Impression: Normal chest. Reviewed, dictated and finalized at [facility]. TICAL GEOGRAPHER Impression: Normal chest.
[2024-11-06 05:41] VITALS: BP 129/81; PULSE 84; RESP 17; TEMP 36.4; O2SAT 98
[2024-11-06 05:48] VITALS: PULSE 78
--- NOTE | 2024-11-06 06:05 | ED_ITS ---
HPI - Dizziness General Chief Complaint: Syncope Stated Complaint: blacked out - on the cold ground, unknown down br[place] Time Seen by Provider: 11/06/24 05:40 History of Present Illness HPI Narrative: Patient is 38-year-old female who presents to the emergency department this morning a status post possible syncopal episode. Patient states that she has been having these episodes where she is unsure if she passes out or has a seizure since February. Patient had a call you had cyst in her 3rd intracranial ventricle removed by a neurosurgeon at [facility] in February of this year. Patient states that prior to this surgery she was having these recurrent syncopal episodes and after the surgery patient states that her symptoms did improve but recently she has noticed that she is having more frequent episodes and believes that she had 3 episodes today. Patient states that she when out to the garage to grab something from the freezer and then woke up on the ground and when she went back into the house and looked at the time she noticed that in our head past. Patient is denying any pain anywhere, does not recall falling or hitting her head but somehow ended up on the ground laying down. Patient also states that she has been having some vision changes associated with these blacking out episodes that resolve. Currently denying any blurry vision at this time. Patient states that initially they thought these episodes could be due to seizures but she states that this was ruled out. She is currently denying any chest pain or shortness of breath, any headache, neck pain, dizziness, focal weakness, numbness and tingling, nausea vomiting or any abdominal pain. Patient also denies any recent illness, any fevers or chills at home. No additional symptoms or concerns at this time. Related Data Home Medications ?Medication ?Instructions ?Recorded ?Confirmed ?Last Taken ?Type bupropion HCl 100 mg tablet,12 hr 100 mg PO DAILY 02/05/20 01/24/23 Unknown History sustained-release infliximab 100 mg intravenous 100 mg IV WEEKLY 02/05/20 01/24/23 01/28/20 History solution (Remicade) trazodone 50 mg tablet 50 mg PO DAILY 02/05/20 01/24/23 Unknown History amlodipine 5 mg tablet 5 mg PO DAILY 01/24/23 01/24/23 Unknown History atomoxetine 40 mg capsule 40 mg PO DAILY 01/24/23 01/24/23 Unknown History fluoxetine 40 mg capsule 40 mg PO DAILY 01/24/23 01/24/23 Unknown History hydroxyzine HCl 25 mg tablet 25 mg PO DAILY 01/24/23 01/24/23 Unknown History Allergies Allergy/AdvReac Type Severity Reaction Status Date / Time No Known Allergies Allergy Verified 01/27/24 08:47 Review of Systems 2 Review of Systems: All systems are reviewed and are negative unless stated otherwise in the HPI. [facility] Past Medical History Medical History depression Depression Arm fracture, right Uterine fibroid Ovarian cyst Asthma Crohn's disease Surgical History Surgical History H/O ovarian cystectomy S/P small bowel resection H/O: hysterectomy Social History Social History Smoking status: Smoker, status unknown Gender identity (if verbalized by the patient): Female Exam 2 Narrative: General: Alert, awake, afebrile, in no acute distress. HEENT: PERRL, no rhinorrhea, no post nasal drip, oropharynx clear. Neck: Trachea midline, no JVD, no lymphadenopathy. Cardiovascular: Regular rate and rhythm, no murmurs, rubs or gallops, no peripheral edema. Respiratory: Clear to auscultation bilaterally, no tachypnea, no wheezing, no rhonchi, no rubs, no respiratory distress. Abdomen: Soft, nontender, nondistended, no rebound, no guarding, no peritoneal signs. Musculoskeletal: No joint swelling or deformity, normal muscle tone. Skin: No rashes or petechia, no signs of infection. Psychiatric: Alert and oriented, normal behavior and judgment for situation. Neurological: Alert and oriented to person, place, and time. Follows all commands. No focal deficits, speech is clear and fluent. Course Vital Signs Vital signs: Vital Signs Temperature 97.6 F 11/06/24 05:41 Pulse Rate 84 11/06/24 05:41 Respiratory Rate 17 11/06/24 05:41 Blood Pressure 129/81 11/06/24 05:41 Pulse Oximetry 98 11/06/24 05:41 Oxygen Delivery Room Air 11/06/24 05:41 Temperature 97.6 F 11/06/24 05:41 Pulse Rate 78 11/06/24 05:48 Respiratory Rate 17 11/06/24 05:41 Blood Pressure 129/81 11/06/24 05:41 Pulse Oximetry 98 11/06/24 05:41 Oxygen Delivery Room Air 11/06/24 05:41 MDM - Dizziness MDM Narrative Medical decision making narrative: The patient was evaluated by myself in the emergency department. History is obtained from patient who is an independent historian and physical exam was performed. External medical records were reviewed at this time. IV was established and pertinent tests were ordered. Patient was administered a 1 L IV fluid bolus with normal saline. EKG was obtained which revealed sinus rhythm rate of 77 beats per minute. No ST changes, T wave inversions or evidence of acute ischemia. EKG was independently interpreted by me and is currently pending official cardiology read. Laboratory results obtained revealing a leukocytosis of 16.4, otherwise unremarkable. Troponin negative. Imaging studies obtained included CT brain without IV contrast which was independently interpreted by me revealing no acute intracranial process, which is pending final radiology interpretation. CXR was obtained at this time and independently interpreted by me revealing no acute cardiopulmonary process. Differential diagnosis considerations include syncopal episode, vasovagal, seizure, dehydration, orthostatic hypotension. Comorbidities impacting this visit include none. I have evaluated and discussed social determinants of health with the patient that could potentially impact subsequent diagnosis and treatment plans. On repeat assessment of the patient, reevaluation revealed that the patient is doing well and is in no acute distress. Patient symptoms have remained stable since she arrived to our emergency department. Repeat vital signs were all reviewed and noted to be stable. Differential diagnosis and treatment plan were discussed with the patient at bedside. Patient agrees with discussion and after shared medical decision making agrees with discharge. All questions were answered to the patient's satisfaction. Patient will follow up with her neurosurgeon in 3-5 days. Patient was provided with strict return precautions and instructed to return to the emergency department if any new or worsening symptoms develop. The patient was discharged in stable condition. Lab Data 11/06/24 05:49 11/06/24 05:49 Labs: Lab Results 11/06/24 Range/Units 05:49 WBC 16.4 H (4.5-10.0) K/mm3 RBC 4.75 (4.2-5.4) M/mm3 Hgb 15.5 H (12.0-15.0) g/dL Hct 44.3 (37.0-47.0) % MCV 93.3 (80-100) fl MCH 32.6 (26-34) pg MCHC 35.0 (32-36) g/dl RDW 12.5 (11.5-14.5) % Plt Count 330 (150-375) k/mm3 MPV 9.1 (7.4-10.4) fl Immature Gran % (Auto) 1.0 H (0-0.5) % Neut % (Auto) 73.1 (45.5-73.1) % Lymph % (Auto) 18.6 (18.3-44.2) % Roosevelt % (Auto) 5.7 (2.6-8.5) % Eos % (Auto) 1.2 (0-4.4) % Baso % (Auto) 0.4 (0.2-1.2) % Lymph # (Auto) 3.06 (0.9-3.2) K/mm3 Roosevelt # (Auto) 0.9 H (0.1-0.6) K/mm3 Eos # (Auto) 0.2 (0-0.3) K/mm3 Baso # (Auto) 0.1 (0.0-0.1) K/mm3 Abs Immat Gran (auto) 0.17 H (0.00-0.031) K/mm3 Absolute Neuts (auto) 12.0 H (1.3-6.7) K/mm3 Absolute Nucleated RBC 0.000 (0.0-0.012) K/mm3 Nucleated RBC % 0.0 (0.0-0.2) % PT 14.4 (11.1-14.7) Seconds INR 1.1 APTT 29.2 (22.3-36.8) Seconds Sodium 136 L (137-145) mmol/L Potassium 4.2 (3.4-5.0) mmol/L Chloride 103 (98-107) mmol/L Carbon Dioxide 25 (22-30) mmol/L Anion Gap 8 (4-12) mmol/L BUN 13 (7-17) mg/dL Creatinine 0.70 (0.7-1.0) mg/dL Estim Creat Clear Calc Not Reportable Estimated GFR > 60 (59 - ) Glucose 141 H (65-110) mg/dL Calcium 9.7 (8.4-10.2) mg/dL Magnesium 1.9 (1.6-2.3) mg/dL Total Bilirubin 1.3 (0.2-1.3) mg/dL AST 34 (14-36) U/L ALT 26 (6-35) U/L Alkaline Phosphatase 75 (38-126) U/L Troponin I < 0.012 (0.000-0.034) ng/mL Total Protein 8.0 (6.3-8.2) g/dL Albumin 4.9 (3.5-5.1) g/dL Serum HCG, Qual Pending Discharge Plan Discharge Clinical Impression: Syncopal episodes Patient Disposition: Home, Self-Care Condition: Improved Instructions: Antibiotic Form, Syncope (ED) Additional Instructions: Please follow-up with your neurologist/neurosurgeon within the next 3-5 days. You also instructed to follow-up with your family doctor within the next week. You also provided with a police magistrate to follow up with an as these syncopal episodes may need further workup including a Holter monitor to assess for any arrhythmia. Return to the emergency department if any new or worsening symptoms develop. Patient Language: Slovenian Prescriptions: No Action fluoxetine 40 mg capsule 40 mg PO DAILY amlodipine 5 mg tablet 5 mg PO DAILY hydroxyzine HCl 25 mg tablet 25 mg PO DAILY atomoxetine 40 mg capsule 40 mg PO DAILY penicillin V potassium 500 mg tablet 500 mg PO Q12H 10 Days Qty: 20 0RF ondansetron 4 mg tablet,disintegrating 4 mg PO Q6H PRN (Reason: nausea and vomiting) Qty: 10 0RF trazodone 50 mg tablet 50 mg PO DAILY bupropion HCl 100 mg tablet sustained-release 12 hr 100 mg PO DAILY infliximab [Remicade] 100 mg Recon Soln 100 mg IV WEEKLY sulfamethoxazole-trimethoprim [Bactrim DS] 800-160 mg tablet 1 tablet PO Q12H 5 Days Qty: 10 0RF omeprazole 40 mg capsule,delayed release(DR/EC) 40 mg PO DAILY 30 Days Qty: 30 0RF Follow-up/Referrals: Dr. Zavala [Other] - 3 Days Agosto,Anrdy Rhodes MD [Primary Care Provider] - 1 Week Time of Disposition: 06:46
[2024-11-06 06:06] LABS: Basophils Absolute Auto 0.1 K/mm3 (0.0-0.1); Basophils Percent Auto 0.4 % (0.2-1.2); Eosinophils Absolute Auto 0.2 K/mm3 (0-0.3); Eosinophils Percent Auto 1.2 % (0-4.4); Hematocrit 44.3 % (37.0-47.0); Hemoglobin 15.5 g/dL (12.0-15.0); Immature Granulocyte Absolute 0.17 K/mm3 (0.00-0.031); Lymphocytes Absolute Auto 3.06 K/mm3 (0.9-3.2); Lymphocytes Percent Auto 18.6 % (18.3-44.2); Mean Corpuscular Hemoglobin 32.6 pg (26-34); Mean Corpuscular Volume 93.3 fl (80-100); Mean Platelet Volume 9.1 fl (7.4-10.4); Monocytes Absolute Auto 0.9 K/mm3 (0.1-0.6); Monocytes Percent Auto 5.7 % (2.6-8.5); Neutrophils Percent Auto 73.1 % (45.5-73.1); Platelet Count Result 330 k/mm3 (150-375); Red Blood Count 4.75 M/mm3 (4.2-5.4); Red Cell Distribution Width 12.5 % (11.5-14.5); White Blood Count 16.4 K/mm3 (4.5-10.0)
[2024-11-06 06:18] LABS: Alanine Aminotransferase 26 U/L (6-35); Albumin Level 4.9 g/dL (3.5-5.1); Alkaline Phosphatase 75 U/L (38-126); Anion Gap 8 mmol/L (4-12); Aspartate Amino Transferase 34 U/L (14-36); Bilirubin,Total 1.3 mg/dL (0.2-1.3); Blood Urea Nitrogen 13 mg/dL (7-17); Calcium 9.7 mg/dL (8.4-10.2); Carbon Dioxide 25 mmol/L (22-30); Chloride 103 mmol/L (98-107); Estimated Glomerular Filt Rate > 60; Glucose 141 mg/dL (65-110); Magnesium 1.9 mg/dL (1.6-2.3); Potassium 4.2 mmol/L (3.4-5.0); Sodium 136 mmol/L (137-145)
[2024-11-06 06:19] LABS: INR 1.1; Partial Thromboplastin Time 29.2 Seconds (22.3-36.8); Prothrombin Time 14.4 Seconds (11.1-14.7)
[2024-11-06 06:28] LABS: Troponin I < 0.012 ng/mL (0.000-0.034)
[2024-11-06 06:42] LABS: SPREG INTERNAL CONTROL Positive; Serum Qual hCG Negative
[2024-11-06 06:45] VITALS: BP 113/72; PULSE 77; RESP 12; O2SAT 98
== END 2024-11-06 07:01 | disposition home or self-care (01) ==
LOC: ANHED 06:52
PROVIDERS: Emergency Provider Emergency Medicine; PCP Internal Medicine
DX: R55 Syncope and collapse (principal); J45.909 Unspecified asthma, uncomplicated; K50.90 Crohn's disease, unspecified, without complications; F32.A Depression, unspecified; Z90.710 Acquired absence of both cervix and uterus; Z90.49 Acquired absence of other specified parts of digestive tract; Z79.899 Other long term (current) drug therapy
CPT/HCPCS: 36415; 70450; 71045; 80053; 83735; 84484; 84703; 85025; 85610; 85730; 99284